=== PATIENT | female | born 1985 | race Caucasian/White ===

== ENCOUNTER → 2022-10-17 08:48 | Outpatient (CLI) | payer OTHER, SELFPAY ==
--- NOTE | ~2022-10-17 | MR_ITS ---
MRI of the brain Clinical History: Dizziness and giddiness Technique: Axial and sagittal T1-weighted images were acquired. These were followed by axial T2-weigh ger, diffusion weighted, gradient, and FLAIR images. Following intravenous administration of 14 cc Mu ltiHance gadolinium, T1-weighted fat-sat imaging was performed in the axial and coronal planes. Findings: No abnormal signal seen in the brain parenchyma. No acute infarct, intracranial hemorrhage, or mass lesion. Ventricles and subarachnoid spaces are unremarkable. Orbits are unremarkable. Paranasal sinuses and m astoid air cells are clear. Major intracranial flow voids are intact. Sagittal midline structures are unremarkable. No abnormal postcontrast enhancement. IMPRESSION: Unremarkable exam. Reviewed, dictated and finalized at location . IMPRESSION: Unremarkable exam.
== END ==
PROVIDERS: PCP Physician Assistant Medical; Visit Provider Physician Assistant Medical
DX: R42 Dizziness and giddiness (principal)
CPT/HCPCS: 70553; A9577

== ENCOUNTER 2024-11-29 08:11 | Outpatient (CLI) | payer OTHER, SELFPAY ==
--- NOTE | ~2024-11-29 | MM_ITS ---
EXAMINATION: MM diagnostic [facility] BI w ami INDICATION: 39-year old female; with diffuse nonfocal BILATERAL Breast pain. No breast lumps or nipple discharge. No family history of breast cancer. COMPARISON: Baseline TECHNIQUE: Digital breast tomosynthesis CC and MLO of Both breasts and True lateral and spot compression in MLO view of Left breast were obtained with computer-aided detection to assist in interpretation of the study. FINDINGS: The breasts are heterogeneously dense, which may obscure small masses. There are no suspicious masses, calcifications, architectural distortion or other abnormalities in Both breasts. IMPRESSION: No evidence of malignancy in Both breasts. RECOMMENDATIONS: 1. Clinical management of patient's breast pain. 2. If the patient has high risk factors for developing breast cancer, such as, but not limited dense breasts, positive gene markers, first degree relative with breast cancer which is not tested for Gene markers of greater than 20% lifetime risk of developing breast cancer, supplemental breast MRI screening (ultrasound if MRI is contraindicated), in addition to annual screening mammography, should be considered and discussed with the patient. BI-RADS 2, BENIGN Reviewed, dictated and finalized at location B. IMPRESSION: No evidence of malignancy in Both breasts. RECOMMENDATIONS: 1. Clinical management of patient's breast pain. 2. If the patient has high risk factors for developing breast cancer, such as, but not limited dense breasts, positive gene markers, first degree relative wit h breast cancer which is not tested for Gene markers of greater than 20% lifeti me risk of developing breast cancer, supplemental breast MRI screening (ultraso und if MRI is contraindicated), in addition to annual screening mammography, sh ould be considered and discussed with the patient. BI-RADS 2, BENIGN
== END 2024-11-29 08:12 | disposition home or self-care (01) ==
LOC: MICIMG 08:14
PROVIDERS: PCP Physician Assistant Medical; Visit Provider Student in an Organized Health Care Education/Training Program
DX: N64.4 Mastodynia (principal)
CPT/HCPCS: 77062; 77066; G0279

== ENCOUNTER 2025-03-10 11:26 | Outpatient (CLI) | payer OTHER, SELFPAY ==
--- NOTE | ~2025-03-10 | CT_ITS ---
EXAMINATION: CT abdomen pelvis w con DATE: 03/10/2025 12:01 INDICATION: Generalized abdominal pain. Diarrhea. TECHNIQUE: Computed tomography (CT) of the abdomen and pelvis was performed with 100 mL Omnipaque 350 intravenous contrast. Automated exposure control and iterative reconstruction technique were employed. The dose-length product was 513.11 mGy-cm. COMPARISON: None. FINDINGS: The visualized portions of the lung bases demonstrate mild atelectasis. No pleural effusion. The heart size is normal. No pericardial effusion. The liver, gallbladder, spleen, pancreas, adrenal glands, and right kidney are normal. There is a 4 mm stone in left kidney. There are no dilated loops of bowel. The appendix is normal. There are no pathologically enlarged lymph nodes. There is physiologic fluid in the pelvis. There is mild lumbar spondylosis. IMPRESSION: 1. No etiology for the patient's symptoms. Reviewed, dictated and finalized at location E. [facility]
== END 2025-03-10 11:27 | disposition home or self-care (01) ==
PROVIDERS: PCP Nurse Practitioner Adult Health; Visit Provider Nurse Practitioner Adult Health
DX: R10.9 Unspecified abdominal pain (principal); R19.7 Diarrhea, unspecified; Z86.19 Personal history of other infectious and parasitic diseases
CPT/HCPCS: 74177; Q9967